=== PATIENT | male | born 1970 | race Caucasian/White ===

== ENCOUNTER → 2019-08-08 06:26 | Outpatient (CLI) | payer SELFPAY ==
--- NOTE | 2019-08-08 06:33 | MRI_ITS ---
STUDY: MRI CERVICAL SPINE WITHOUT CONTRAST REASON FOR EXAM: Male, 49 years old. Neck pain, bilateral arm pain, numbness, tingling TECHNIQUE: Standardized fat and water weighted pulse sequences were obtained in the sagittal and axial planes. COMPARISON: None FINDINGS: Normal foramen magnum and brainstem-cervical cord junction. Normal craniovertebral junction. Normal anterior atlantoaxial articulation. Normal odontoid process. There is straightening of the normal cervical lordosis. Normal vertebral bodies and posterior osseous elements. C2-3: Normal endplates. Normal disc height, signal and morphology. Normal central canal and intervertebral neural foramina. C3-4: Normal endplates. Normal disc height, signal and morphology. Normal central canal and intervertebral neural foramina. C4-5: Mild broad disc osteophyte complex asymmetric to the right produces mild spinal stenosis with abutment of the right hemicord. No neural foraminal stenosis. C5-6: Normal endplates. Normal disc height, signal and morphology. Normal central canal and intervertebral neural foramina. C6-7: Normal endplates. Normal disc height, signal and morphology. Normal central canal and intervertebral neural foramina. C7-T1: Normal endplates. Normal disc height, signal and morphology. Normal central canal and intervertebral neural foramina. Normal cervical cord. Normal visualized soft tissue structures. MRI/Spine Cervical (Routine) IMPRESSION: Focal degenerative disc disease at C4/C5 with straightening of the normal lordotic curvature. Electronically Signed: Gurvinder Castellanos MD at 11:55 EDT Tel , Service support ,
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
== END ==
PROVIDERS: Family Provider Nurse Practitioner; PCP Nurse Practitioner; Referring Provider Nurse Practitioner; Visit Provider Nurse Practitioner
DX: R51 Headache (principal); M54.2 Cervicalgia
CPT/HCPCS: 70450; 72141

== ENCOUNTER → 2020-11-14 16:50 | Outpatient (CLI) | payer SELFPAY ==
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
== END ==
PROVIDERS: PCP Nurse Practitioner
DX: R20.2 Paresthesia of skin (principal)
CPT/HCPCS: 72146

== ENCOUNTER → 2022-07-16 | Outpatient (CLI) | payer SELFPAY ==
--- NOTE | 2022-07-16 15:29 | NEURO ---
NCS and/or EMG Patient Report Ordering Doctor: Asa Angeles DATE OF SERVICE: 07/16/22 Ricardo presents for electrodiagnostic testing of the upper limbs. He reports stiffness in both hands with tingling and numbness in the fingertips. Pain radiates to the forearms and upper arms. Electrodiagnostic findings: Right median motor nerve demonstrates prolonged distal latency with normal amplitude and reduced conduction velocity. Left median motor nerve demonstrates prolonged distal latency with normal amplitude and reduced conduction velocity. Ulnar motor response within normal limits bilaterally. Prolonged median sensory latency at the wrist bilaterally normal ulnar and radial sensory responses. Prolonged median F wave bilaterally. Needle EMG, all muscles tested in the upper limbs showed no evidence of denervation with normal motor unit action potentials. Electrodiagnostic impression: This is an abnormal study in the upper limbs 1. Electrodiagnostic findings suggestive of bilateral median mononeuropathy. This is consistent with a severe right carpal tunnel syndrome and a moderate left carpal tunnel syndrome
== END | disposition home or self-care (01) ==
PROVIDERS: PCP Internal Medicine; Visit Provider Psychiatry & Neurology Neurology
DX: G56.03 Carpal tunnel syndrome, bilateral upper limbs (principal); M54.2 Cervicalgia
CPT/HCPCS: 95886; 95913